=== PATIENT | male | born 1935 | race Caucasian/White ===

== ENCOUNTER 2018-09-07 15:23 | Emergency (ER) | payer MEDICARE, OTHER ==
[2018-09-07] MEDS: morphine 10 MG INJ IM (16:29)
== END 2018-09-07 17:15 | disposition home or self-care (01) ==
LOC: E/R 15:23
DX: S20.212A Contusion of left front wall of thorax, initial encounter (principal); W18.30XA Fall on same level, unspecified, initial encounter; Y92.9 Unspecified place or not applicable; Z79.01 Long term (current) use of anticoagulants
CPT/HCPCS: 71045; 71100; 93005; 96372; 99284-25

== ENCOUNTER 2018-11-30 00:36 | Emergency (ER) | payer MEDICARE, OTHER ==
[2018-11-30 01:57] LABS: ADD UMIC NO; UR ASCORBIC ACID NEGATIVE (NEGATIVE); UR BILIRUBIN (Dip) NEGATIVE (NEGATIVE); UR BLOOD (Dip) NEGATIVE (NEGATIVE); UR CLARITY CLEAR (CLEAR); UR COLOR STRAW (YELLOW); UR GLUCOSE (Dip) NEGATIVE (NEGATIVE); UR KETONES (Dip) NEGATIVE (NEGATIVE); UR LEUKOCYTE ESTERASE (Dip) NEGATIVE Leu/ul (NEGATIVE); UR NITRITE (Dip) NEGATIVE (NEGATIVE); UR SPECIFIC GRAVITY (Dip) 1.003 (1.003-1.030); UR TOTAL PROTEIN (Dip) NEGATIVE (NEGATIVE); UR UROBILINOGEN (Dip) NEGATIVE (NEGATIVE)
== END 2018-11-30 03:23 | disposition home or self-care (01) ==
LOC: E/R 00:36
DX: I10 Essential (primary) hypertension (principal); G44.209 Tension-type headache, unspecified, not intractable
CPT/HCPCS: 70450; 81003; 99284-25